=== PATIENT | male | born 1960 | race Caucasian/White ===

== ENCOUNTER → 2024-03-07 12:58 | Outpatient (REF) | payer OTHER, SELFPAY | LOC: RAD 12:58 | PROVIDERS: ATTENDING PHYSICIAN Physician Assistant | DX: R20.2 Paresthesia of skin (principal) | CPT/HCPCS: 72110 ==

== ENCOUNTER 2024-04-14 15:52 | Observation (INO) | payer OTHER, SELFPAY ==
[2024-04-14 10:33] VITALS: BP 133/87
[2024-04-14 11:47] LABS: ALT (SGPT) 19 U/L (0-50); AST (SGOT) 22 U/L (17-59); Albumin 4.6 g/dl (3.5-5.0); Alkaline Phosphatase 75 U/L (38-126); Blood Urea Nitrogen 14 mg/dl (9-20); Calcium 9.6 mg/dl (8.4-10.2); Carbon Dioxide 30 mmol/L (22-30); Chloride 96 mmol/L (98-107); Glucose 74 mg/dl (70-99); Potassium 4.6 mmol/L (3.5-5.1); Sodium 134 mmol/L (135-145); Total Bilirubin 0.5 mg/dl (0.2-1.3); Total Protein 8.1 g/dl (6.3-8.2); eGFR > 60.00
[2024-04-14 11:52] LABS: % Basophils 0.4 % (0-2); % Eosinophils 1.2 % (0-6); % Immature Granulocytes 0.2 % (0-0.5); % Lymphocytes 29.5 % (20.5-51.1); % Monocytes 11.2 % (1.7-9.3); % Neutrophils 57.5 % (42.2-75.2); Absolute Eosinophils 0.1 10^3/uL (0-0.7); Absolute Lymphocytes 1.4 10^3/uL (1.2-3.4); Absolute Monocytes 0.5 10^3/uL (0.1-0.6); Absolute Neutrophils 2.8 10^3/uL (1.4-6.5); Hematocrit 37.6 % (39.0-52.0); Hemoglobin 13.3 g/dL (13.0-18.0); Mean Corp Hgb Conc. 35.4 g/dL (33.0-37.0); Mean Corpuscular Hgb 31.6 pg (27.0-31.0); Mean Corpuscular Volume 89.3 fL (80.0-94.0); Mean Platelet Volume 9.1 fL (7.4-10.4); Nucleated Red Blood Cells % 0 % (-); Platelet Count 232 10^3/uL (130-400); Red Blood Cell Count 4.21 10^6/uL (4.70-6.10); Red Cell Dist. Width 12.9 % (11.5-14.5); White Blood Cell Count 4.8 10^3/uL (4.8-10.8)
[2024-04-14 12:36] LABS: Urine Albumin Negative (Neg - Trace); Urine Bilirubin Negative (Negative); Urine Character Clear (Clear); Urine Color Yellow; Urine Glucose Negative (Negative); Urine Ketone Negative (Negative); Urine Leukocyte Negative (Negative); Urine Nitrite Negative (Negative); Urine Occult Blood Negative (Negative); Urine Urobilinogen Negative (Neg - 1+)
--- NOTE | 2024-04-14 13:12 | ED.GENMED ---
History of Present Illness
General
Chief Complaint: Change in Mental Status
Source: patient
Exam Limitations: none
Time Seen by Provider: 04/14/24 12:07
Nursing documentation reviewed up to this point in time: agreed with
History of Present Illness
History of Present Illness:
63 y/o M with stable bipolar disorder/mental illness on depakote, edentureless, previous alcohol abuse
Here with his roommate who took him and after 2 years of being homeless
She corroborates that the patient has been very psychologically stable on his medications and that he is sober
He is usually a very active person.
Ever since she took a man in the fall she has noticed some bit of a decline in his ability to speak fluently, he takes pauses and has trouble with his words sometimes. He is also since October started having headaches that have been waxing and
waning in intensity but feel like a pressure behind his eyes and his forehead. 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 He has not
had teeth for about 2 years but his speech seems thicker and difficult to understand which is not like him according to even his roommate.
Patient has had some numbness in his body including his hands and feet, lightheadedness and the feeling like he may pass out, urinary frequency where he is urinating every 30 minutes, trouble with his balance. All of the symptoms seem to have been
ongoing for months but over the last couple of weeks have gotten significantly worse so he went and saw his family doctor and they did a very extensive panel of blood apparently and told him that they were presuming that he had Lyme disease
infection although it does not sound like he had a positive Lyme test. He was treated with about 20-maya days of doxycycline before he stopped it on his own. He was supposed to take 28 but he was has feeling like it was upsetting his stomach and he
was not having much improvement of his symptoms in fact he feels like he is worse.
Patient does not usually visit doctors very often, it takes him a lot to get to a doctor. He is very cautious and sensitive to feeling like people will dismiss him because of his previous mental illness and drug abuse.
Past History
Past History
ED Past Medical History: Psychiatric
Social History
Tobacco: Smoker
Alcohol: Former
Drug: None
Personal: Single
Living: with roommate
Employment: Employed
Review of Systems
Review of Systems
Allergies reviewed?: Yes
All Other Systems: Not applicable
Phy Exam
Physical Exam
Physical Exam:
GENERAL: Alert , in no apparent distress
HEAD: NCAT
EYE: pupils equal and reactive, no nystagmus, photophobia
NECK: Supple,full rom, nontender edentulous
ENT: o/p clr, mmm.
CARDIAC: Regular rate and rhythm . no edema
LUNGS: Clear breath sounds bilaterally, no acute respiratory distress, no wheezes/rales/rhonchi
ABDOMEN: Soft, without focal tenderness, no r/g, no cvat
NEUROLOGICAL: Alert and orientedx 4, cn intact, slight left-sided facial droop, the corner of his left mouth does not elevate as normally as the right 5/5 strength in UE/LE, sensation intact, romberg neg, ambulates without assistance, neg pronator
drift
SKIN: Warm and dry, skin intact.
MUSCULOSKELETAL: No edema, well perfused.
PSYCH: Normal and appropriate interaction.
Course
Orders/Labs/Results
Orders:
Orders
04/14/24 11:28
Alcohol Urgent
Complete Blood Count/With Diff Urgent
Comprehensive Metabolic Panel Urgent
04/14/24 12:03
Urinalysis Reflex To Culture Urgent
Date Specimen was Collected: 04/14/24
Time Specimen was Collected: 12:01
04/14/24 12:34
Add On- LAB Urgent
Tests Added?: depakote
CT Head W/o Iv Contrast Urgent
Comment:
Reason For Exam: slurred speech, balance prob, excessive urination
04/14/24 13:04
Depakane Urgent
Comment: DRAWN IN RED TOP
04/14/24 13:11
NEUROLOGY CONSULT Urgent
Consulting Provider: Cole Walker
Was physician already notified: Yes
04/14/24 14:48
Add On- LAB Urgent
Tests Added?: urine drug screen
Ammonia Urgent
Lyme PCR, DNA [S] Urgent
Spinal Fluid Protein Urgent
04/14/24 14:49
CSF Cell Count Urgent
CSF Tube Number: 3
Cryptococcal Antigen, CSF [S] Urgent
Comment: tube #4
Spinal Fluid Glucose Urgent
CSF Tube Number: 2
Gram Stain Urgent
MAX Source: Csf
Specimen Description:
Comment: tube #1
Meningitis Panel, CSF by PCR Urgent
MAX Source: Csf
Specimen Description:
04/14/24 14:53
Add On- LAB Urgent
Tests Added?: alcohol
04/14/24 15:00
Vitamin B12 IN AM
04/14/24 15:13
Add On- LAB Routine
Tests Added?: Valproate level
04/14/24 15:35
Admit/Transfer Patient As Directed
Co-Sign Provider:
Level of Care: Observation services
Assign to:: Telemetry
Physician / Group: Diego Gonsales
Diagnosis: facial weakness/speech change/paresthesia
Reason for Telemetry: Arrhythmia
Date to Stop Telemetry: 04/17/24
Time to Stop Telemetry: 11:00
Reason for Hospitalization: facial weakness/speech change/paresthesia
Expected length of stay greater than two midnights?: Yes
ELOS- Estimated Length of Stay in days: 2
04/14/24 15:39
Code Status As Directed
Resuscitation Status: Full Code
04/15/24 06:00
Vitamin B1, Whole Blood [S] IN AM
04/17/24 11:00
DC Protocol for Telemetry ONCE
Abnormal Lab Results
04/14/24
11:28
RBC 4.21 L 10^6/uL
(4.70-6.10)
Hct 37.6 L %
(39.0-52.0)
MCH 31.6 H pg
(27.0-31.0)
Monocytes % 11.2 H %
(1.7-9.3)
Sodium 134 L mmol/L
(135-145)
Chloride 96 L mmol/L
(98-107)
04/14/24 11:28
04/14/24 11:28
Vital Signs
Initial and Last Documented VS:
Initial Vital Signs
Temp Pulse Resp BP Pulse Ox
97.8 F 86 18 133/87 100
04/14/24 10:33 04/14/24 10:33 04/14/24 10:33 04/14/24 10:33 04/14/24 10:33
Last Documented Vital Signs
Temp Pulse Resp BP Pulse Ox
97.8 F 86 18 133/87 100
04/14/24 10:33 04/14/24 10:33 04/14/24 10:33 04/14/24 10:33 04/14/24 10:33
MDM/Problems Addressed
Differential Diagnosis Includes:
Neuro Lyme, stroke, brain tumor, Depakote toxicity, hydrocephalus
MDM/Problems Addressed:
63-year-old male with a history of bipolar disorder which is very stable
Former alcohol abuse but has been sober for a year
Presents for ongoing months of symptoms that are neurologic with headaches, numbness, gait problems, lightheadedness, word finding and word slurring. This is worsening over the last 3 weeks in particular. He apparently was treated empirically for
Lyme disease but stopped before the 28th day because of not tolerating the medication and not feeling like it was helping. He has not had a neurologic evaluation but is scheduled for an outpatient MRI next week. He was feeling like symptoms are
worsening and he needed to be evaluated. There is nothing particularly today that made him come in because of anything worse.
I do appreciate patient has a paucity of speech, some dysarthria, left facial droop, no trouble with [id number]-hw-[id number], sways with Romberg but not significantly, no sensory deficits or strength deficits
His workup in the emergency department was negative, I was suspicious maybe he would have hydrocephalus but he does not. I obtained a neuro consult.
The patient felt like the neurologist was not taking him seriously. He would prefer to be directly spoken to instead of speaking to his roommate and friend. Patient ultimately does agree to stay for MRI and IR consult for lumbar puncture for CSF
evaluation per neurology recommendation
*Critical Care Note
Total Time (30-74mins, 75-104mins- exclusive of procedures): Not Applicable
ED Attending Note
-
Portions of this chart may have been created with voice recognition software.� Occasional wrong word or��sound alike� substitutions may have occurred due to the inherent limitations of voice recognition software.
Discharge Plan
Departure
Patient Disposition: Admit
Date of Disposition: 04/14/24
Time of Disposition: 14:46
Admit to: Med/Surg
Presentation/result/management discussed w/ accepting MD/DO: Hospitalist
Patient with high blood pressure during this ER visit?: No
Condition: Fair
Covid-19: Not Applicable
Discharge Problem:
Facial droop, Slurred speech
Interventions
Interventions:
*Risk Screen - Suicide Last Done: 04/14/24 10:33
*General Assessment Last Done: 04/14/24 10:33
*Neglect/Abuse Screening Last Done: 04/14/24 10:33
ED- Fall Risk Assessment Last Done: 04/14/24 13:54
*ED COVID-19 Vaccine History Last Done: 04/14/24 10:33
ED- Pulmonary Assessment Last Done: 04/14/24 13:54
ED-Psychological Assessment Last Done: 04/14/24 13:54
ED- Neurological Assessment Last Done: 04/14/24 13:15
ED- Cardiac Assessment Last Done: 04/14/24 13:54
[2024-04-14 13:45] LABS: Depakane 84.3 ug/ml (50.0-120.0)
--- NOTE | 2024-04-14 15:41 | HPS.HSE ---
Family Physician
-
Family Physician: Claudia Berry PA-C
Chief Complaint
-
Facial weakness/speech changes/paresthesia
History of Present Illness
Patient is 63-year-old male with past medical history of bipolar disorder, history of Mckeon's palsy, history of alcohol use, former smoker, history of left hand crush injury, edentulism came to ER for having worsening facial weakness/extremity
numbness and speech changes came to ER for further evaluation. Patient symptoms have been ongoing for few weeks and was seen by PCP and was started on doxycycline course for 28 days for concern of possible Lyme's although serology was negative.
Patient finished antibiotic course and stop further doxycycline as was having some abdominal pain/nausea. Patient have history of left-sided Mckeon's palsy although started having some right-sided sensation change as well. Patient was also having
both hand numbness as well. No reported motor weakness. Patient also having slowness of thought process and word finding difficulty. Patient came to ER for further evaluation.
No associated cardiopulmonary or GI complaints.
Medical History
Past Medical History
Past Medical History: Reports Other
Additional Past Medical History:
history of bipolar disorder, history of Mckeon's palsy, history of alcohol use, former smoker, history of left hand crush injury, edentulism
Past Surgical History: Reports Other
Social History
Tobacco: Former Smoker
Alcohol: Former
Family History
Family History: Not pertinent
Allergies / Home Medications
Allergies reflects when Allergies were last updated in [facility].
Home Medications with original date entered in [facility]
Allergy/Medication List:
Allergies
Allergy/AdvReac Type Severity Reaction Status Date / Time
amoxicillin Allergy Unknown Verified 04/14/24 14:28
bupropion HCl Allergy heart Verified 04/14/24 10:40
[From Wellbutrin] attack,
foamed at
mouth
meperidine Allergy aggressive Verified 04/14/24 10:40
reaction
morphine Allergy Unknown Verified 04/14/24 10:40
Home Medications
Lactobac no.2-Bifidobac no.1-S. thermo 112.5 billion cell capsule (Visbiome) 1 cap PO DAILY 04/14/24
cyanocobalamin (vitamin B-12) 1 tab PO DAILY 04/14/24
divalproex 500 mg tablet,delayed release 1,500 mg PO HS 04/14/24
divalproex 500 mg tablet,delayed release 500 mg PO DAILY 04/14/24
ibuprofen 200 mg tablet (Advil) 200 mg PO DAILYPRN PRN mild pain 04/14/24
quetiapine 200 mg tablet 200 mg PO HS 04/14/24
therapeutic multivitamin 1 tab PO DAILY 04/14/24
vitamin B complex 1 tab PO DAILY 04/14/24
Review of Systems
-
A 12 point ROS was completed and negative except as noted: Yes
Physical Exam
Vital Signs
Vital Signs
Temp Pulse Resp BP Pulse Ox
97.8 F 86 18 133/87 100
04/14/24 10:33 04/14/24 10:33 04/14/24 10:33 04/14/24 10:33 04/14/24 10:33
Physical Exam
General: No Apparent Distress
HEENT: Atraumatic; No Oxygen
Respiratory: Clear
Cardiac: S1/S2 and Regular Rhythm; No Murmur or Rub
GI: Soft, Non Tender, Non Distended and Normal Bowel Sounds; No Organomegaly
Musculoskeletal: No Clubbing, No Cyanosis and No Edema
Skin: No Rash
Neuro: Awake, Alert, Oriented and No Motor Deficits; No No Sensory Deficits
Laboratory Results
-
04/14/24 11:28
04/14/24 11:28
Laboratory Results
Total Bilirubin 0.5 mg/dl (0.2-1.3) 04/14/24 11:28
AST 22 U/L (17-59) 04/14/24 11:28
ALT 19 U/L (0-50) 04/14/24 11:28
Alkaline Phosphatase 75 U/L (38-126) 04/14/24 11:28
Data Reviewed
-
Lab Data: Labs Reviewed by me and Discussed with Family
Impression/Plan
-
1. Paresthesia
Speech changes
-Patient reports right-sided facial paresthesia and bilateral hand and feet numbness/tingling
-No overt motor deficits
-Patient treated empirically for possible Lyme with patient taking 22 days doxycycline.
-MRI brain with and without contrast ordered
-IRAD consulted for lumbar puncture and test ordered
-Check depaokte level
-Check B12/folate level in morning.
-monitor on telemetry
2. h/o Bipolar disorder
-Continue divalproex/Seroquel home dose
history of Mckeon's palsy
history of alcohol use
former smoker
history of left hand crush injury
edentulism
History of head trauma
DVT PPX - scd
Full code
Total time spent : 77 mins
I personally saw and examined the patient.
I have reviewed all diagnostic interpretations and treatment plans as written.
Time includes patient management by me, time spent at the patients bedside, time to review lab and imaging results, discussing patient care, documentation in the medical record, and time spent with the family or caregiver and discussing care plan
with RN/Consultants.
[2024-04-14 15:52] LABS: Alcohol None Detected
[2024-04-14 16:14] VITALS: BP 136/69
[2024-04-14 16:46] LABS: Amphetamines Negative (Negative); Barbiturates Negative (Negative); Benzodiazepines Negative (Negative); Buprenorphine Negative (Negative); Cocaine Negative (Negative); Marijuana Negative (Negative); Methadone Negative (Negative); Methamphetamines Negative (Negative); Opiates Negative (Negative); Phencyclidine Negative (Negative); Tricyclic Antidepressants Positive (Negative)
[2024-04-14 17:00] VITALS: BP 106/66
[2024-04-14 17:23] VITALS: BMI 24.3
[2024-04-14 17:30] LABS: Ammonia < 9 umol/L (9-30)
[2024-04-14 18:40] LABS: Vitamin B12 > 1000 pg/ml (239-931)
[2024-04-14 19:11] LABS: Depakane 84.8 ug/ml (50.0-120.0)
[2024-04-14 19:21] VITALS: BP 122/75
[2024-04-14] MEDS: SEROQUEL 200 MG PO (21:53)
[2024-04-14] MEDS: DEPAKOTE (12 HR RELEASE) 1500 MG PO (21:55)
[2024-04-14] MEDS: MOTRIN 200 MG PO (22:16)
[2024-04-14 23:20] VITALS: BP 112/94
[2024-04-15] VITALS (10 sets, daily range): BP systolic 60–149; BP diastolic 56–83
[2024-04-15 07:36] LABS: Hematocrit 37.4 % (39.0-52.0); Hemoglobin 13.3 g/dL (13.0-18.0); Mean Corp Hgb Conc. 35.6 g/dL (33.0-37.0); Mean Corpuscular Hgb 31.6 pg (27.0-31.0); Mean Corpuscular Volume 88.8 fL (80.0-94.0); Mean Platelet Volume 8.9 fL (7.4-10.4); Platelet Count 199 10^3/uL (130-400); Red Blood Cell Count 4.21 10^6/uL (4.70-6.10); Red Cell Dist. Width 12.5 % (11.5-14.5); White Blood Cell Count 4.3 10^3/uL (4.8-10.8)
[2024-04-15 07:47] LABS: INR 1.12; PT 14.2 Sec (11.4-14.6)
[2024-04-15 08:20] LABS: Blood Urea Nitrogen 15 mg/dl (9-20); Calcium 9.8 mg/dl (8.4-10.2); Carbon Dioxide 28 mmol/L (22-30); Chloride 96 mmol/L (98-107); Estimated Creatinine Clearance 116 ml/min; Glucose 96 mg/dl (70-99); Potassium 4.2 mmol/L (3.5-5.1); Sodium 134 mmol/L (135-145); eGFR > 60.00
[2024-04-15] MEDS: DEPAKOTE (12 HR RELEASE) 500 MG PO (09:05)
[2024-04-15] MEDS: THERAGRAN 1 TABLET PO (09:05)
[2024-04-15] MEDS: B COMPLEX w/VITAMIN C 1 CAPLET PO (09:05)
[2024-04-15] MEDS: VITAMIN B-12 1000 MCG PO (09:06)
[2024-04-15] MEDS: VISBIOME 1 CAP PO (09:08)
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
[2024-04-15 10:32] LABS: Folate 16.9 ng/ml (2.76-20)
[2024-04-15] MEDS: SEROQUEL 50 MG PO (11:09)
--- NOTE | 2024-04-15 12:23 | W.PN.NEURO.1 ---
Addendum entered and electronically signed by Cole Walker MD 04/15/24 19:54:
I have seen and examined the patient. I agree with [employer]ENTATIVE evaluation assessment and plan.
Cole Walker MD
Neurology Attending
Original Note:
Today's Communication / Plan
-
.
Neuro Assessment/Plan
Assessment
This is a 63-year-old male with a PMH of bipolar disorder, L Mckeon's palsy, and alcohol abuse who presented to on 04/14/24 with report of confusion, brain fog, and slurred speech.
-CT head 04/14/24: There are no focal or acute intracranial abnormalities. There is mild diffuse cortical atrophy.
-MRI brain 04/15/24: pending
-Lumbar puncture: pending
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
II. Low concern for structural brain abnormality or infectious process producing symptoms but possible.
III. Bipolar disorder, valproic acid level is normal.
Plan
-MRI brain with renny pending.
-Lumbar puncture to evaluate CSF cell count glucose protein and Lyme's antigen pending.
-Consider routine EEG if workup is unremarkable.
-Thiamine/multivitamin replacement.
-Continue Depakote 500 mg in the morning and 1500 at bedtime
-Consider outpatient neuropsychological testing.
-DVT prophylaxis.
Subjective/Objective
Subjective Data
Date of Service: April 15, 2024
No acute events overnight. Patient reports ongoing brain fog/difficulty getting his words out. He endorses pressure behind bilateral eyes and chronic numbness in his tongue. He denies dizziness, vision changes, swallowing difficulty, nausea,
weakness, chest pain, palpitations, and shortness of breath.
Objective Data
Vital Signs
Temp Pulse Resp BP Pulse Ox
97.8 F 61 18 107/62 97
04/15/24 07:38 04/15/24 07:38 04/15/24 07:38 04/15/24 07:38 04/15/24 09:00
Lab Results
04/15/24 07:24
04/15/24 07:24
PT 14.2 Sec (11.4-14.6) 04/15/24 07:24
INR 1.12 04/15/24 07:24
Sodium 134 mmol/L (135-145) L 04/15/24 07:24
Potassium 4.2 mmol/L (3.5-5.1) 04/15/24 07:24
BUN 15 mg/dl (9-20) 04/15/24 07:24
Glucose 96 mg/dl (70-99) 04/15/24 07:24
Calcium 9.8 mg/dl (8.4-10.2) 04/15/24 07:24
Vitamin B12 Cancelled 04/14/24 15:00
Ur Buprenorphine Negative (Negative) 04/14/24 12:03
Patient Allergies
amoxicillin Allergy (Verified 04/14/24 14:28)
Unknown
bupropion HCl [From Wellbutrin] Allergy (Verified 04/14/24 10:40)
heart attack, foamed at mouth
meperidine Allergy (Verified 04/14/24 10:40)
aggressive reaction
morphine Allergy (Verified 04/14/24 10:40)
Unknown
Review of Systems
-
History Source: Patient
EENT: Negative Blurry Vision, Decreased Vision or Swallowing Difficulty
Respiratory: Negative Cough or Trouble Breathing
Cardiac: Negative Chest Pain or Palpitations
Abdomen/GI: Negative Nausea
Neuro: Headache, Numbness and Speech Problem; Negative Dizzy, Weakness, Ataxia or Tremors
Physical Exam
-
General: No Apparent Distress
Eyes: No Ptosis and PERRLA
HEENT: Normocephalic and Atraumatic
Neck: Full Range of Motion
Respiratory: No Dyspnea
GI: Non-distended
Extremities: No Clubbing, No Cyanosis and No Edema
Extended Neurological Exam
Mood & Affect: Mood Unremarkable and Affect Unremarkable
Attention Span & Concentration: Awake, Alert and Interactive
Memory: Unremarkable (AAOx3) and Able to Recall
Tremor: Hand Tremor Absent and Head Tremor Absent
Involuntary Movement: None
Speech: Quantity Unremarkable, Rate of Production Unremarkable and Dysarthric (mildly slurred speech, adentitious)
Cranial Nerve II: Left Eye: Pupillary Reactivity Unremarkable, Pupillary Size Unremarkable and Visual Watts Intact
Cranial Nerve II: Right Eye: Pupillary Reactivity Unremarkable, Pupillary Size Unremarkable and Visual Watts Intact
Cranial Nerves III, IV, : Extraocular Movement: Extraocular Movement Full in all Directions
Cranial Nerve V: Facial Sensation: Intact to Light Touch
Cranial Nerve VII: Facial Symmetry: Reduced (left facial droop at baseline)
Cranial Nerve VIII: Hearing: Unremarkable Hearing to Normal Conversational Volume
Cranial Nerves IX, X: Palate Movement: Palate Elevation Symmetric
Cranial Nerve XI: Shoulder Shrug: Unremarkable
Cranial Nerve XII: Tongue Protusion: Midline
Muscle Strength, Overall: Full Throughout
Muscle Bulk & Tone: Bulk Unremarkable and Tone Unremarkable
Pronator Drift: No Drift in Upper Extremities and No Drift in Lower Extremities
Deep Tendon Reflexes: Unremarkable Throughout
Cold Sensation: Unremarkable
Vibration Sensation: Unremarkable
Touch Sensation: Unremarkable
Coordination: [id number] Testing Unremarkable
Babinski Sign: Absent Bilaterally
Data Reviewed
-
CT Head: Report Reviewed and Image Reviewed
MRI Head: Pending
Medical Test Reports: Pending (LP)
Labs: Report Reviewed
Lipid Profile: Report Reviewed
HgbA1C: Report Reviewed
Reviewed with: Physician and Patient
Medications
-
Active Medications
Generic Name Dose Route Start Last Admin
Trade Name Freq PRN Reason Stop Dose Admin
Acetaminophen 650 mg 04/14/24 16:45
Acetaminophen 325 Mg Tablet PO 05/12/24 16:44
Q4HPRN PRN
mild pain/WILSON/temp> 100.4F
Bisacodyl 10 mg 04/14/24 16:45
Bisacodyl 10 Mg Rectal Suppository RECTAL 05/12/24 16:44
[id number] PRN
constipation
Cyanocobalamin 1,000 mcg 04/15/24 08:00 04/15/24 09:06
Cyanocobalamin 1,000 Mcg Tablet PO 05/13/24 07:59 1,000 mcg
DAILY J LUIS Administration
Divalproex Sodium 1,500 mg 04/14/24 22:00 04/14/24 21:55
Divalproex 500 Mg Delayed Release (12 Hr) Tablet PO 05/12/24 21:59 1,500 mg
HS J LUIS Administration
Divalproex Sodium 500 mg 04/15/24 08:00 04/15/24 09:05
Divalproex 500 Mg Delayed Release (12 Hr) Tablet PO 05/13/24 07:59 500 mg
DAILY J LUIS Administration
Ibuprofen 200 mg 04/14/24 16:45 04/14/24 22:16
Ibuprofen 200 Mg Tablet PO 05/12/24 16:44 200 mg
DAILYPRN PRN Administration
mild pain
Lactobacillus/Bifidobacterium 1 cap 04/15/24 08:00 04/15/24 09:08
Lactobac/Bifidobac (Visbiome) PO 05/13/24 07:59 1 cap
DAILY J LUIS Administration
Multivitamins Therapeutic 1 tablet 04/15/24 08:00 04/15/24 09:05
Multivitamin Tablet PO 05/13/24 07:59 1 tablet
DAILY J LUIS Administration
Polyethylene Glycol 17 grams 04/14/24 16:45
Polyethylene Glycol Powder 17 Grams Packet PO 05/12/24 16:44
DAILYPRN PRN
constipation
Quetiapine Fumarate 200 mg 04/14/24 22:00 04/14/24 21:53
Quetiapine 100 Mg Tablet PO 05/12/24 21:59 200 mg
HS J LUIS Administration
Senna/Docusate Sodium 1 tablet 04/14/24 16:45
Docusate W/Senna (Michelle-Colace) Tablet PO 05/12/24 16:44
BIDPRN PRN
constipation
Sodium Chloride 0 flush 04/14/24 18:00
Sodium Chloride 0.9% (Flush) Syringe IV 05/12/24 17:59
PER PROTOCOL J LUIS
Thiamine HCl 100 mg 04/15/24 13:00
Thiamine 100 Mg Tablet PO 05/13/24 12:59
DAILY J LUIS
Vitamin B Complex/Vitamin C 1 caplet 04/15/24 08:00 04/15/24 09:05
Vitamin B Complex With Vitamin C Caplet PO 05/13/24 07:59 1 caplet
DAILY J LUIS Administration
Home Medications
�Medication �Instructions �Recorded
Lactobac no.2-Bifidobac no.1-S. 1 cap PO DAILY probiotic 04/14/24
thermo 112.5 billion cell capsule
(Visbiome)
cyanocobalamin (vitamin B-12) 1 tab PO DAILY Supplement 04/14/24
divalproex 500 mg tablet,delayed 1,500 mg PO mental health 04/14/24
release
divalproex 500 mg tablet,delayed 500 mg PO DAILY mental health 04/14/24
release
ibuprofen 200 mg tablet (Advil) 200 mg PO DAILYPRN PRN mild pain 04/14/24
quetiapine 200 mg tablet 200 mg PO HS mental health 04/14/24
therapeutic multivitamin 1 tab PO DAILY Supplement 04/14/24
vitamin B complex 1 tab PO DAILY Supplement 04/14/24
--- NOTE | 2024-04-15 12:58 | PTCARENOTE ---
patient in IR department at present. has baseline left facial droop, some difficulty finding words, mild slurring, reports chronic tongue numbness, feels like 'brain is in a fog and not right', anxiety increased prior to MRI, so one time dose of
Seroquel was administered, after returning from MRI, anxiety appearsed less, vss, will continue to monitor.
--- NOTE | 2024-04-15 12:58 | W.PN.HOSP.TC ---
Today's Communication/Plan
-
await LP result
MRI neg
Assessment / Plan
Assessment / Plan
1. Paresthesia
Speech changes
-Patient reports right-sided facial paresthesia and bilateral hand and feet numbness/tingling
-No overt motor deficits
-Patient treated empirically for possible Lyme with patient taking 22 days doxycycline.
-MRI brain with and without ruled out any abnormalities.
-IRAD consulted for lumbar puncture and waiting for test results.
-Depakote level WNL
-B12/folate wnl.
-monitor on telemetry
2. h/o Bipolar disorder
-Continue divalproex/Seroquel home dose
history of Mckeon's palsy
history of alcohol use
former smoker
history of left hand crush injury
edentulism
History of head trauma
DVT PPX - scd
Full code
Anticipated Discharge: Within 24 hours
Subjective/Interval History
-
Date of Service: April 15, 2024
patient remains anxious to undergo testing
continues to have speech changes
Objective Data
-
Labs:
Laboratory Results
04/15/24
07:24
WBC 4.3 L
Hgb 13.3
Hct 37.4 L
Plt Count 199
PT 14.2
INR 1.12
Sodium 134 L
Potassium 4.2
Chloride 96 L
Carbon Dioxide 28
BUN 15
Creatinine 0.7
Glucose 96
Calcium 9.8
Vital Signs:
Vital Signs
Temp Pulse Resp BP Pulse Ox
99.0 F 60 18 110/67 99
04/15/24 12:51 04/15/24 12:51 04/15/24 12:51 04/15/24 12:51 06/28/24 12:51
I&O
04/14/24 04/15/24 04/16/24
06:59 06:59 06:59
Intake Total 480 / 480
Balance 480 / 480
Review of Systems
-
Respiratory: Reports No Symptoms
Cardiac: Reports No Symptoms
Abdomen/GI: Reports No Symptoms
Physical Exam
-
General: No Apparent Distress and Comfortable
HEENT: Negative Oxygen
Respiratory: Clear to Auscultation
Cardiac: Regular Rhythm and S1/S2; Negative Murmur or Rub
GI: Soft, Nontender and Nondistended
Musculoskeletal: No Edema
Neuro: Awake, Alert, Oriented, No Motor Deficits and Nonfocal/Grossly Intact
Psych: Calm
--- NOTE | 2024-04-15 14:15 | PTCARENOTE ---
patient returned from IR aaox3, reports no pain, lungs clear, no sob, apical heart rate remains bradycardic. lower back band aid c/d/i, vss, will continue to monitor.
[2024-04-15] MEDS: VITAMIN B1 100 MG PO (14:49)
[2024-04-15 14:50] LABS: CSF Clarity Clear; CSF Color Colorless; CSF Tube # 4; White Cell Count/CSF 2 mm^3 (0-5)
[2024-04-15 14:51] LABS: Red Cell Count/CSF 7 mm^3
[2024-04-15 15:49] LABS: Spinal Fluid Glucose 57 mg/dl (40-70); Spinal Fluid Protein 54 mg/dl (12-60)
--- NOTE | 2024-04-15 16:53 | CM ---
Alert awake oriented patient who lives with his SO Radha who lives in a 2 story home with 3 step to enter and bed and bathroom on first floor. He is independent in driving and in all activities of daily living.He was offered VN he declined
need.Observation letter given explained signed on chart.
No VN hx / No SNF history. Hx substance rehab
Pharmacy [facility]
PCP DR Berry
PLAN Home Declined VN
[2024-04-15] MEDS: DEPAKOTE (12 HR RELEASE) 1500 MG PO (21:06)
[2024-04-15] MEDS: SEROQUEL 200 MG PO (21:06)
[2024-04-16 03:00] VITALS: BP 108/70
[2024-04-16 06:59] LABS: Hematocrit 37.2 % (39.0-52.0); Mean Corp Hgb Conc. 34.9 g/dL (33.0-37.0); Mean Corpuscular Hgb 31.3 pg (27.0-31.0); Mean Corpuscular Volume 89.6 fL (80.0-94.0); Mean Platelet Volume 8.9 fL (7.4-10.4); Platelet Count 190 10^3/uL (130-400); Red Blood Cell Count 4.15 10^6/uL (4.70-6.10); Red Cell Dist. Width 12.5 % (11.5-14.5); White Blood Cell Count 5.3 10^3/uL (4.8-10.8)
[2024-04-16 07:00] VITALS: BP 106/72
[2024-04-16 07:22] LABS: Blood Urea Nitrogen 18 mg/dl (9-20); Calcium 9.7 mg/dl (8.4-10.2); Carbon Dioxide 28 mmol/L (22-30); Chloride 96 mmol/L (98-107); Estimated Creatinine Clearance 90 ml/min; Glucose 99 mg/dl (70-99); Potassium 4.4 mmol/L (3.5-5.1); Sodium 134 mmol/L (135-145); eGFR > 60.00
[2024-04-16] MEDS: THERAGRAN 1 TABLET PO (08:52)
[2024-04-16] MEDS: VITAMIN B1 100 MG PO (08:52)
[2024-04-16] MEDS: VISBIOME 1 CAP PO (08:52)
[2024-04-16] MEDS: B COMPLEX w/VITAMIN C 1 CAPLET PO (08:52)
--- NOTE | 2024-04-16 08:55 | W.PN.HOSP.TC ---
Today's Communication/Plan
-
d/c home
Assessment / Plan
Assessment / Plan
1. Paresthesia
Speech changes
-Patient reports right-sided facial paresthesia and bilateral hand and feet numbness/tingling
-No overt motor deficits
-Patient treated empirically for possible Lyme with patient taking 22 days doxycycline.
-MRI brain with and without contrast ruled out any abnormalities.
-IRAD consulted for lumbar puncture normal. wbc 2 TP 54. Meningitis panel negative.
-Depakote level WNL
-B12/folate wnl.
-May have small fiber neuropathy, advised to f/u with [facility] neurology or other neurology of preference for further workup.
2. h/o Bipolar disorder
-Continue divalproex/Seroquel home dose
3. Hyponatremia
-mild, no further workup
history of Mckeon's palsy
history of alcohol use
former smoker
history of left hand crush injury
edentulism
History of head trauma
DVT PPX - scd
Full code
More than 30 minutes spent in discharge including
Final examination of the patient
Summarizing hospital stay
Instructions for continuing care to all relevant caregivers
Preparation of discharge records, prescriptions, and referral forms
Total time spent (in minutes): 38 mins
Anticipated Discharge: Today
Subjective/Interval History
-
Date of Service: April 16, 2024
continues to have some paresthesia in hands/face
no new neurological symptoms
Objective Data
-
Labs:
Laboratory Results
04/16/24
06:41
WBC 5.3
Hgb 13.0
Hct 37.2 L
Plt Count 190
Sodium 134 L
Potassium 4.4
Chloride 96 L
Carbon Dioxide 28
BUN 18
Creatinine 0.9
Glucose 99
Calcium 9.7
Vital Signs:
Vital Signs
Temp Pulse Resp BP Pulse Ox
97.8 F 57 16 106/72 99
04/16/24 07:00 04/16/24 07:00 04/16/24 07:00 04/16/24 07:00 04/16/24 07:00
I&O
04/15/24 04/16/24 04/17/24
06:59 06:59 06:59
Intake Total 480 / 480 1919
Balance 480 / 480 1919
Review of Systems
-
Respiratory: Reports No Symptoms
Cardiac: Reports No Symptoms
Abdomen/GI: Reports No Symptoms
Physical Exam
-
General: No Apparent Distress and Comfortable
HEENT: Negative Oxygen
Respiratory: Clear to Auscultation
Cardiac: Regular Rhythm and S1/S2; Negative Murmur or Rub
GI: Soft, Nontender and Nondistended
Musculoskeletal: No Edema
Neuro: Awake, Alert, Oriented, No Motor Deficits and Nonfocal/Grossly Intact
Psych: Calm
[2024-04-16] MEDS: DEPAKOTE (12 HR RELEASE) 500 MG PO (09:03)
[2024-04-16] MEDS: VITAMIN B-12 1000 MCG PO (09:04)
[2024-04-17 15:36] LABS: C.neoformans Antigen Negative (Negative)
--- NOTE | 2024-04-17 16:42 | W.DCSUMMARY ---
Discharge Summary
Discharge Data
Date of Admission: 04/14/24
Date of Discharge: 04/16/24
-
Pending Results: No
Hospital Course
Discharging Physician : Dr Diego Aguiar
Disposition : Home
Primary care physician : Dr Claudia Berry
Principal Discharge diagnosis :
Facial/extremity paresthesia
Speech changes
Chronic Discharge diagnosis :
History of bipolar disorder
Hyponatremia
History of Mckeon's palsy
History of alcohol use
Former smoker
History of left hand crush injury
Edentulism
History of head trauma
Hospital Course :
Patient is 63-year-old male with mentioned past medical history came to ER for having speech changes, bradyphrenia and right-sided facial and extremity paresthesia. All the symptoms were ongoing for few weeks and initially patient was felt to have
possible Lyme's and was provided 28-day course of doxycycline by primary care physician. Lyme serologies were negative, Patient finished 22-day course without much relief. Patient came to ER for further evaluation and was seen by neurology
services. An MRI brain with and without contrast ruled out any acute abnormalities. Interventional radiology was consulted and patient underwent lumbar puncture and was checked for meningitis panel and was negative. CSF WBC/total protein were
within normal limit and there was no concern of any other infectious source. Depakote level/B12/folate level were checked and within normal limit. At this point patient was clear to be discharged with further follow-up with outpatient neurology.
Patient advised to follow-up with possible [facility] or [place] neurology for further workup of possible small fiber neuropathy.
Important imaging findings :
None
Procedure findings :
None
Discharge Plan
-
Patient Disposition: Home (Routine Discharge)
Discharge Diagnosis/Procedures: Possible small fiber neuropathy vs other
Condition: Fair
Diet: Regular
Activity: As tolerated
Driving Restrictions: As prior to admission
Bathing Restrictions: OK to Shower
Activity Restrictions/Additional Instructions:
Call [facility] Neurology [phone] for follow up for further work up.
Referrals:
Claudia Berry PA-C [Family Provider] - in one week
Prescriptions:
Continued
quetiapine 200 mg Tablet
200 mg PO HS
therapeutic multivitamin Tablet
1 tab PO DAILY
divalproex 500 mg Tablet,Delayed Release (Dr/Ec)
500 mg PO DAILY
divalproex 500 mg Tablet,Delayed Release (Dr/Ec)
1,500 mg PO HS
ibuprofen [Advil] 200 mg Tablet
200 mg PO DAILYPRN PRN (Reason: mild pain)
vitamin B complex Tablet
1 tab PO DAILY
Visbiome 112.5 billion cell Capsule
1 cap PO DAILY
cyanocobalamin (vitamin B-12) tablet
1 tab PO DAILY
Discharge Orders:
Discharge Patient (As Directed); Ordered 04/16/24
Ordered By: Diego Aguiar
Discharge Date and Time
Discharge Date/Time: 04/16/24 10:15
Print Language: ALBANIAN
== END 2024-04-16 10:15 | disposition home or self-care (01) ==
LOC: 3 WEST ACU 15:52
PROVIDERS: Physician Assistant; Radiology Diagnostic Radiology; ADMITTING PHYSICIAN Hospitalist; CONSULT PHYSICIAN Psychiatry & Neurology Neurology; EMERGENCY PHYSICIAN Emergency Medicine; FAMILY PHYSICIAN Physician Assistant
DX: R20.2 Paresthesia of skin (principal); R20.0 Anesthesia of skin; E87.1 Hypo-osmolality and hyponatremia; R41.82 Altered mental status, unspecified; F31.9 Bipolar disorder, unspecified; F10.11 Alcohol abuse, in remission; G51.0 Bell's palsy; R42 Dizziness and giddiness; R35.0 Frequency of micturition; R47.81 Slurred speech; K08.109 Complete loss of teeth, unspecified cause, unspecified class; R51.9 Headache, unspecified; R26.9 Unspecified abnormalities of gait and mobility; R47.1 Dysarthria and anarthria; Z87.891 Personal history of nicotine dependence; Z88.5 Allergy status to narcotic agent; Z88.0 Allergy status to penicillin; Z88.8 Allergy status to other drugs, medicaments and biological substances; Z87.820 Personal history of traumatic brain injury; Z60.2 Problems related to living alone
CPT/HCPCS: 62328; 70450; 70553; 80048; 80053; 80164; 80306; 81003; 82077; 82140; 82607; 82746; 82945; 84157; 84425; 85025; 85027; 85610; 87205; 87327; 87476; 87483; 89051; 99285; 99406; A9575

== ENCOUNTER 2024-05-06 14:40 | Emergency (ER) | payer OTHER, SELFPAY ==
[2024-05-06 14:43] VITALS: BP 148/86
--- NOTE | 2024-05-06 15:39 | ED.GENMED ---
History of Present Illness
General
Chief Complaint: Weakness
Source: patient
Exam Limitations: none
Time Seen by Provider: 05/06/24 15:38
Nursing documentation reviewed up to this point in time: agreed with
History of Present Illness
History of Present Illness:
63-year-old male with history of prior head injury with lightheadedness and dizziness, ADHD, alcohol abuse (has been sober for a year), bipolar presents for 'my varicose veins are more throbby,' this skin (pointing to medial left knee area) was all
bulged out' for past two days but not today, has a sensation 'like a raindrop' off and on right cheek, tingling in both ankles, tingling various areas of face, legs.
Pt lives with a roommate whose mother is a friend and at bedside who states 'he's been fatigued for several months.'
Treated presumptively for Lyme's 2 months ago with Doxycycline by PCP. Had Lyme titer in March 03.
Admitted here 04/14-04/16 for facial and extremity paresthesias, speech changes, had neg MRI, CT, and lumbar puncture (specifically neg for Lyme's or any other infectious process). Depakote, folate and B12 were a WNL. Referred to Neuology which pt
states he has not done.
Sees a therapist at [facility] weekly, last visit 2 days ago.
Sees ST[facility] FE[facility] at [facility] 2 months: they are aware of his symptoms and 2 weeks ago had Seroquel dose decreased from 400 mg daily to 200 mg daily, 100 a.m. and 100 mg p.m.
Past History
Past History
ED Past Medical History: Psychiatric (BiPolarm, ADHD, head injury), Other (Mckeon's Palsy) and Other (paresthesias of face and extremities)
ED Past Surgical History: Orthopedic
Social History
Tobacco: Smoker
Alcohol: Former
Drug: None
Personal: Single
Living: with roommate
Employment: Employed
Review of Systems
Review of Systems
Allergies reviewed?: Yes
All Other Systems: ROS reviewed and negative except as documented in HPI and ROS
Constitutional: Reports fatigue; Denies fever
EENT: Denies sore throat
Respiratory: Denies trouble breathing
Cardiac: Denies chest pain
ABD/GI: Denies abdominal pain, nausea, vomiting, diarrhea, constipated or anorexia
: Reports no symptoms
Musculoskeletal: Denies joint pain, joint swelling, edema, neck pain or back pain
Skin: Reports no symptoms
Neurological: Reports other ('tingling' sensations intermittently face, extremities); Denies headache
Phy Exam
Physical Exam
Physical Exam:
GENERAL: No acute distress. A&Ox3.
CONSTITUTIONAL: Afebrile.
EYES: Clear, conjunctivae normal
ENMT: moist mucus membranes, Pharynx nl
RESPIRATORY: Regular respirations, nonlabored, lungs clear.
CARDIOVASCULAR: Regular rate and rhythm, no murmurs, no rubs.
GI: Soft, nontender, normal BS
MUSCULOSKELETAL: Moves with ease. Well perfused.No edema. Cluster of varicose veins R popliteal area. No significant swelling, no redness or tenderness.
SKIN: Warm, dry, pink
PSYCH: Mildly anxious mood and affect. Well kept, interactive and appropriate
NEUROLOGIC: Awake, alert and oriented. No focal neurological deficit. No tics or spasms noted. Ambulates with steady gait.
Course
Orders/Labs/Results
Orders:
Orders
05/06/24 16:08
Complete Blood Count/With Diff Urgent
Comprehensive Metabolic Panel Urgent
Magnesium Urgent
Abnormal Lab Results
05/06/24
16:08
WBC 4.3 L 10^3/uL
(4.8-10.8)
RBC 4.27 L 10^6/uL
(4.70-6.10)
Hct 37.5 L %
(39.0-52.0)
MCH 31.6 H pg
(27.0-31.0)
Monocytes % 12.5 H %
(1.7-9.3)
Sodium 134 L mmol/L
(135-145)
05/06/24 16:08
05/06/24 16:08
Vital Signs
Initial and Last Documented VS:
Initial Vital Signs
Temp Pulse Resp BP Pulse Ox
98.2 F 95 16 148/86 98
05/06/24 14:43 05/06/24 14:43 05/06/24 14:43 05/06/24 14:43 05/06/24 14:43
Last Documented Vital Signs
Temp Pulse Resp BP Pulse Ox
98.2 F 72 16 133/89 97
05/06/24 14:43 05/06/24 17:39 05/06/24 17:39 05/06/24 17:39 05/06/24 17:39
MDM/Problems Addressed
Differential Diagnosis Includes:
anxiety about health, dehydration, electrolyte imbalance
Reaction to recent change in Psyche medication
MDM/Problems Addressed:
63-year-old male with history of prior head injury with lightheadedness and dizziness, ADHD, alcohol abuse (has been sober for a year), bipolar presents for 'my varicose veins are more throbby,' this skin (pointing to medial left knee area) was all
bulged out' for past two days but not today, has a sensation 'like a raindrop' off and on right cheek, tingling in both ankles, tingling various areas of face, legs.
Pt lives with a roommate whose mother is a friend and at bedside who states 'he's been fatigued for several months.' She is an advocate for the patient.
Sees a therapist at [facility] weekly, last visit 2 days ago.
Sees [facility] at [facility] q 2 months: they are aware of his symptoms and 2 weeks ago had Seroquel dose decreased from 400 mg daily to 200 mg daily, 100 a.m. and 100 mg p.m.
Treated presumptively for Lyme's 2 months ago with Doxycycline by PCP pending titre.
Obtained this result from 03/02 and scanned into this chart: No active Lyme's. 'Total AB positive, IgG positive, IgMBA neg'
Admitted here 04/14-04/16 for facial and extremity paresthesias, speech changes, had neg MRI, CT, and lumbar puncture (specifically neg for Lyme's or any other infectious process). Depakote, folate and B12 were a WNL. Referred to Neuology which pt
states he has not done.
Pt and advocate visitor informed of interpretation of Lyme test, reassured he does not have active Lyme's.
*Critical Care Note
Total Time (30-74mins, 75-104mins- exclusive of procedures): Not Applicable
Patient Management
Social determinants of health affecting care: Strong social support (lives with roommate whose mother helps care for him)
ED Attending Note
-
Portions of this chart may have been created with voice recognition software.� Occasional wrong word or��sound alike� substitutions may have occurred due to the inherent limitations of voice recognition software.
Discharge Plan
Departure
Patient Disposition: Home (Routine Discharge)
Date of Disposition: 05/06/24
Time of Disposition: 17:16
Patient with high blood pressure during this ER visit?: No
Condition: Good
Discharge Problem:
Paresthesias
Instructions: Paresthesia (DC)
Prescriptions:
No Action
quetiapine 200 mg Tablet
200 mg PO HS
therapeutic multivitamin Tablet
1 tab PO DAILY
divalproex 500 mg Tablet,Delayed Release (Dr/Ec)
500 mg PO DAILY
divalproex 500 mg Tablet,Delayed Release (Dr/Ec)
1,500 mg PO HS
ibuprofen [Advil] 200 mg Tablet
200 mg PO DAILYPRN PRN (Reason: mild pain)
vitamin B complex Tablet
1 tab PO DAILY
Visbiome 112.5 billion cell Capsule
1 cap PO DAILY
cyanocobalamin (vitamin B-12) tablet
1 tab PO DAILY
Referrals:
Jacques Callahan MD [Family Provider] -
Carol Boswell, [Active] - Next open appointment
Activity Restrictions/Additional Instructions:
As we discussed, your lab test for Lyme's disease shows that at some time in your past you were exposed but there is no indication of active disease at the time of the test or of current disease at this time
Your blood work today is normal.
Make an appointment with a neurologist for the tingling or 'paresthesias' you are experiencing.
Interventions
Interventions:
*Risk Screen - Suicide Last Done: 05/06/24 16:33
*General Assessment Last Done: 05/06/24 16:33
*Neglect/Abuse Screening Last Done: 05/06/24 16:33
ED- Fall Risk Assessment Last Done: 05/06/24 17:41
*ED COVID-19 Vaccine History Last Done: 05/06/24 16:33
*Nursing Disposition Last Done: 05/06/24 17:41
ED- Cardiac Assessment Last Done: 05/06/24 16:09
ED- Neurological Assessment Last Done: 05/06/24 16:09
ED- Pulmonary Assessment Last Done: 05/06/24 16:09
Discharge Date and Time
Discharge Date/Time: 05/06/24 17:42
Print Language: PERSIAN
[2024-05-06 16:04] VITALS: BP 136/94
[2024-05-06 16:09] VITALS: BP 136/94
[2024-05-06 16:23] LABS: % Basophils 0.5 % (0-2); % Eosinophils 0.9 % (0-6); % Immature Granulocytes 0.2 % (0-0.5); % Monocytes 12.5 % (1.7-9.3); % Neutrophils 46.9 % (42.2-75.2); Absolute Lymphocytes 1.7 10^3/uL (1.2-3.4); Absolute Monocytes 0.5 10^3/uL (0.1-0.6); Hematocrit 37.5 % (39.0-52.0); Hemoglobin 13.5 g/dL (13.0-18.0); Mean Corpuscular Hgb 31.6 pg (27.0-31.0); Mean Corpuscular Volume 87.8 fL (80.0-94.0); Nucleated Red Blood Cells % 0 % (-); Platelet Count 234 10^3/uL (130-400); Red Blood Cell Count 4.27 10^6/uL (4.70-6.10); Red Cell Dist. Width 12.7 % (11.5-14.5); White Blood Cell Count 4.3 10^3/uL (4.8-10.8)
[2024-05-06 16:50] LABS: ALT (SGPT) 16 U/L (0-50); AST (SGOT) 22 U/L (17-59); Albumin 4.5 g/dl (3.5-5.0); Alkaline Phosphatase 82 U/L (38-126); Blood Urea Nitrogen 15 mg/dl (9-20); Calcium 9.8 mg/dl (8.4-10.2); Carbon Dioxide 27 mmol/L (22-30); Chloride 98 mmol/L (98-107); Glucose 79 mg/dl (70-99); Magnesium 2.1 mg/dl (1.6-2.3); Potassium 4.8 mmol/L (3.5-5.1); Sodium 134 mmol/L (135-145); Total Bilirubin 0.3 mg/dl (0.2-1.3); Total Protein 7.6 g/dl (6.3-8.2); eGFR > 60.00
[2024-05-06 17:39] VITALS: BP 133/89
== END 2024-05-06 17:42 | disposition home or self-care (01) ==
LOC: EMR 14:40
PROVIDERS: Registered Nurse; EMERGENCY PHYSICIAN Emergency Medicine; FAMILY PHYSICIAN Family Medicine
DX: R20.2 Paresthesia of skin (principal); F17.200 Nicotine dependence, unspecified, uncomplicated
CPT/HCPCS: 99283; 80053; 83735; 85025

== ENCOUNTER 2024-05-14 11:58 | Emergency (ER) | payer OTHER, SELFPAY ==
[2024-05-14 12:06] VITALS: BP 124/89
[2024-05-14 13:00] LABS: % Basophils 0.3 % (0-2); % Eosinophils 1.4 % (0-6); % Immature Granulocytes 0.3 % (0-0.5); Absolute Eosinophils 0.1 10^3/uL (0-0.7); Absolute Lymphocytes 1.3 10^3/uL (1.2-3.4); Absolute Monocytes 0.4 10^3/uL (0.1-0.6); Absolute Neutrophils 1.8 10^3/uL (1.4-6.5); Hematocrit 36.9 % (39.0-52.0); Hemoglobin 13.7 g/dL (13.0-18.0); Mean Corp Hgb Conc. 37.1 g/dL (33.0-37.0); Mean Corpuscular Hgb 32.1 pg (27.0-31.0); Mean Corpuscular Volume 86.4 fL (80.0-94.0); Mean Platelet Volume 9.1 fL (7.4-10.4); Nucleated Red Blood Cells % 0 % (-); Platelet Count 228 10^3/uL (130-400); Red Blood Cell Count 4.27 10^6/uL (4.70-6.10); Red Cell Dist. Width 12.6 % (11.5-14.5); White Blood Cell Count 3.5 10^3/uL (4.8-10.8)
[2024-05-14 13:14] LABS: ALT (SGPT) 17 U/L (0-50); AST (SGOT) 21 U/L (17-59); Albumin 4.4 g/dl (3.5-5.0); Alkaline Phosphatase 74 U/L (38-126); Blood Urea Nitrogen 17 mg/dl (9-20); Calcium 9.6 mg/dl (8.4-10.2); Carbon Dioxide 25 mmol/L (22-30); Chloride 100 mmol/L (98-107); Glucose 120 mg/dl (70-99); Magnesium 1.9 mg/dl (1.6-2.3); Potassium 4.6 mmol/L (3.5-5.1); Sodium 132 mmol/L (135-145); Total Bilirubin 0.4 mg/dl (0.2-1.3); Total Protein 7.4 g/dl (6.3-8.2); eGFR > 60.00
[2024-05-14 13:22] LABS: NT-proBNP 30.7 pg/ml; Troponin I < 0.012 ng/ml
[2024-05-14 13:42] LABS: TSH 1.56 uIU/ml (0.47-4.68)
--- NOTE | 2024-05-14 13:51 | ED.GENMED ---
History of Present Illness
General
Chief Complaint: Breathing Problem
Time Seen by Provider: 05/14/24 13:41
History of Present Illness
History of Present Illness:
63-year-old male presents the emergency department for evaluation of a myriad of complaints. These issues have been on going for the better part of the past month. He was admitted to this hospital for similar symptoms at the end of March at which
time he underwent a brain MRI as well as a lumbar puncture and both of these were grossly unremarkable. He reports symptoms of intermittent tingling and paresthesia to the upper and lower extremities as well as intermittent lightheadedness. He did
have shortness of breath last night that concerned him. He is scheduled to see his neurologist in 3 days as an outpatient. Denies any fevers or chills. Denies any chest pain or dyspnea at present
Past History
Past History
ED Past Medical History: Psychiatric (BiPolarm, ADHD, head injury), Other (Mckeon's Palsy) and Other (paresthesias of face and extremities)
ED Past Surgical History: Orthopedic
Social History
Tobacco: Smoker
Alcohol: Former
Drug: None
Personal: Single
Living: with roommate
Employment: Employed
Review of Systems
Review of Systems
Allergies reviewed?: Yes
All Other Systems: ROS reviewed and negative except as documented in HPI and ROS
Phy Exam
Physical Exam
Physical Exam:
GEN: Well appearing, NAD, WDWN
HEENT: Oral mucosa moist, no scleral icterus, no nasal congestion
Cardiac: Regular rate and rhythm, no murmurs
Lung: No respiratory distress, no tachypnea
MSK: No gross deformity or injuries
Skin: Good color, no pallor or jaundice, no rashes
Neuro: AO x3; CN II-XII grossly intact, with exception of left facial droop that is reportedly chronic from prior Mckeon's palsy; BUE strength 5/5 in all leigh, sensation intact and symmetric. BLE strength 5/5 in all leigh, sensation intact and
symmetric
Psych: Calm, cooperative
Scores
Heart Failure Risk
Heart Failure Risk Score: Not Applicable
Course
Orders/Labs/Results
Orders:
Orders
05/14/24 12:00
ECG [Electrocardiogram (*1)] Urgent
Reason for Study: Chest Pain
05/14/24 12:01
EKG- Treatment ONCE
05/14/24 12:36
BNP [NT-proBNP] Urgent
Complete Blood Count/With Diff Urgent
Comprehensive Metabolic Panel Urgent
Magnesium Urgent
TSH Urgent
Troponin I Urgent
05/14/24 13:51
CR Chest - 2 Views Urgent
Comment:
Reason For Exam: SOB
Abnormal Lab Results
05/14/24
12:36
WBC 3.5 L 10^3/uL
(4.8-10.8)
RBC 4.27 L 10^6/uL
(4.70-6.10)
Hct 36.9 L %
(39.0-52.0)
MCH 32.1 H pg
(27.0-31.0)
MCHC 37.1 H g/dL
(33.0-37.0)
Monocytes % 11.0 H %
(1.7-9.3)
Sodium 132 L mmol/L
(135-145)
Glucose 120 H mg/dl
(70-99)
05/14/24 12:36
05/14/24 12:36
Vital Signs
Initial and Last Documented VS:
Initial Vital Signs
Temp Pulse Resp BP Pulse Ox
98.1 F 88 16 124/89 98
05/14/24 12:06 05/14/24 12:06 05/14/24 12:06 05/14/24 12:06 05/14/24 12:06
Last Documented Vital Signs
Temp Pulse Resp BP Pulse Ox
98.6 F 88 16 117/89 98
05/14/24 14:21 05/14/24 12:06 05/14/24 12:06 05/14/24 14:19 05/14/24 14:21
MDM/Problems Addressed
MDM/Problems Addressed:
The cause of the patient's symptoms is not clear at this time. His diffuse paresthesias and fatigue have been ongoing for several weeks and he had a previous extensive neurologic workup that was unremarkable he has an upcoming follow-up with
neurology. This week and I recommended he keep this appointment. I see no evidence for acute coronary syndrome or acute neurologic emergency
Comment
Comment:
EKG independently interpreted by me shows normal sinus rhythm at a rate of [address] changes concerning for ischemia
*Critical Care Note
Total Time (30-74mins, 75-104mins- exclusive of procedures): Not Applicable
ED Attending Note
-
Portions of this chart may have been created with voice recognition software.� Occasional wrong word or��sound alike� substitutions may have occurred due to the inherent limitations of voice recognition software.
Discharge Plan
Departure
Patient Disposition: Home (Routine Discharge)
Date of Disposition: 05/14/24
Time of Disposition: 14:30
Patient with high blood pressure during this ER visit?: No
Discharge Problem:
Paresthesia
Instructions: Paresthesia (DC)
Prescriptions:
No Action
quetiapine 200 mg Tablet
200 mg PO HS
therapeutic multivitamin Tablet
1 tab PO DAILY
divalproex 500 mg Tablet,Delayed Release (Dr/Ec)
500 mg PO DAILY
divalproex 500 mg Tablet,Delayed Release (Dr/Ec)
1,500 mg PO HS
ibuprofen [Advil] 200 mg Tablet
200 mg PO DAILYPRN PRN (Reason: mild pain)
vitamin B complex Tablet
1 tab PO DAILY
Visbiome 112.5 billion cell Capsule
1 cap PO DAILY
cyanocobalamin (vitamin B-12) tablet
1 tab PO DAILY
Referrals:
Wilson Treviño MD [Family Provider] -
Activity Restrictions/Additional Instructions:
The cause of your symptoms is not clear at this time however does not appear to be anything emergent. Please continue with plan to follow-up with neurology next week
Interventions
Interventions:
*Risk Screen - Suicide Last Done: 05/14/24 14:22
*General Assessment Last Done: 05/14/24 14:22
*Neglect/Abuse Screening Last Done: 05/14/24 14:22
ED- Fall Risk Assessment Last Done: 05/14/24 14:36
*ED COVID-19 Vaccine History Last Done: 05/14/24 14:22
*Nursing Disposition Last Done: 05/14/24 14:36
ED- Cardiac Assessment Last Done: 05/14/24 14:22
ED- Pulmonary Assessment Last Done: 05/14/24 14:22
Discharge Date and Time
Discharge Date/Time: 05/14/24 14:37
Print Language: BENGALI
[2024-05-14 14:19] VITALS: BP 117/89
[2024-05-14 14:20] VITALS: BMI 25.6
== END 2024-05-14 14:37 | disposition home or self-care (01) ==
LOC: EMR 11:58
PROVIDERS: Emergency Medicine; EMERGENCY PHYSICIAN Emergency Medicine; FAMILY PHYSICIAN Family Medicine
DX: R20.2 Paresthesia of skin (principal); R42 Dizziness and giddiness; R20.0 Anesthesia of skin; R06.02 Shortness of breath; R53.83 Other fatigue; F90.9 Attention-deficit hyperactivity disorder, unspecified type; G51.0 Bell's palsy; F17.200 Nicotine dependence, unspecified, uncomplicated; Z88.1 Allergy status to other antibiotic agents; Z88.5 Allergy status to narcotic agent; Z88.8 Allergy status to other drugs, medicaments and biological substances
CPT/HCPCS: 99283; 71046; 80053; 83735; 83880; 84443; 84484; 85025; 93005

== ENCOUNTER 2024-06-08 12:54 | Emergency (ER) | payer OTHER, SELFPAY ==
[2024-06-08 12:58] VITALS: BP 157/90
[2024-06-08 13:29] LABS: % Basophils 0.5 % (0-2); % Eosinophils 1.8 % (0-6); % Immature Granulocytes 0.3 % (0-0.5); % Lymphocytes 38.9 % (20.5-51.1); % Monocytes 13.5 % (1.7-9.3); Absolute Eosinophils 0.1 10^3/uL (0-0.7); Absolute Lymphocytes 1.5 10^3/uL (1.2-3.4); Absolute Monocytes 0.5 10^3/uL (0.1-0.6); Absolute Neutrophils 1.7 10^3/uL (1.4-6.5); Hematocrit 38.6 % (39.0-52.0); Hemoglobin 14.1 g/dL (13.0-18.0); Mean Corp Hgb Conc. 36.5 g/dL (33.0-37.0); Mean Corpuscular Hgb 31.8 pg (27.0-31.0); Mean Corpuscular Volume 87.1 fL (80.0-94.0); Mean Platelet Volume 8.9 fL (7.4-10.4); Nucleated Red Blood Cells % 0 % (-); Platelet Count 247 10^3/uL (130-400); Red Blood Cell Count 4.43 10^6/uL (4.70-6.10); Red Cell Dist. Width 12.2 % (11.5-14.5); White Blood Cell Count 3.9 10^3/uL (4.8-10.8)
[2024-06-08 13:48] LABS: ALT (SGPT) 22 U/L (0-50); AST (SGOT) 27 U/L (17-59); Albumin 4.8 g/dl (3.5-5.0); Alkaline Phosphatase 76 U/L (38-126); Blood Urea Nitrogen 14 mg/dl (9-20); Calcium 10.2 mg/dl (8.4-10.2); Carbon Dioxide 30 mmol/L (22-30); Chloride 98 mmol/L (98-107); Glucose 107 mg/dl (70-99); Potassium 4.7 mmol/L (3.5-5.1); Sodium 133 mmol/L (135-145); Total Bilirubin 0.4 mg/dl (0.2-1.3); Total Protein 7.9 g/dl (6.3-8.2); eGFR > 60.00
--- NOTE | 2024-06-08 14:53 | ED.GENMED ---
History of Present Illness
<Jazlyn Valladares DO - Last Filed: 06/08/24 14:53>
General
Chief Complaint: Numbness
Time Seen by Provider: 06/08/24 15:10
<Nathaniel Lozano PA-C - Last Filed: 06/08/24 17:57>
General
Source: patient
Exam Limitations: none
History of Present Illness
History of Present Illness:
63-year-old male here with ongoing paresthesias. He was admitted in March for this had an MRI lumbar puncture both of which were negative. He notes increased neck pain. He has seen neurology in the interim who ordered a CT of the cervical spine
secondary to neck pain. He is having trouble getting this done. He notes the pain is on bilateral aspects of his neck that radiates to both shoulders. The pain is not pleuritic. He notes ongoing [id number] 1 of which are not new. He has
had his Depakote level checked. He denies a fever. He had Lyme disease last year. No new complaints otherwise.
Past History
<DO Benita Sanchez Last Filed: 06/08/24 14:53>
Past History
ED Past Medical History: Psychiatric (BiPolarm, ADHD, head injury), Other (Mckeon's Palsy) and Other (paresthesias of face and extremities)
ED Past Surgical History: Orthopedic
Social History
Tobacco: Smoker
Alcohol: Former
Drug: None
Personal: Single
Living: with roommate
Employment: Employed
Phy Exam
<Nathaniel Lozano PA-C - Last Filed: 06/08/24 17:57>
Physical Exam
Physical Exam:
General: Well-appearing male no acute respiratory distress
HEENT: Normocephalic atraumatic
Heart: Regular rate and rhythm no murmurs
Lungs: Clear no wheeze
Neurologic exam: Alert and oriented. Conversing appropriately. Good muscle tone. No drift. Bilateral patellar reflexes are 2+.
Skin is warm no rash
Vascular: 2+ dorsalis pedis pulse bilateral feet
Course
<Jazlyn Valladares, DO - Last Filed: 06/08/24 14:53>
Orders/Labs/Results
Orders:
Orders
06/08/24 13:13
CMP [Comprehensive Metabolic Panel] Urgent
Complete Blood Count/With Diff Urgent
06/08/24 15:28
CT Cervical Spine W/o Iv Contr Urgent
Comment:
Reason For Exam: neck pain
06/08/24 17:45
Ketorolac [Toradol] 30 mg IM NOW STA
Abnormal Lab Results
06/08/24
13:13
WBC 3.9 L 10^3/uL
(4.8-10.8)
RBC 4.43 L 10^6/uL
(4.70-6.10)
Hct 38.6 L %
(39.0-52.0)
MCH 31.8 H pg
(27.0-31.0)
Monocytes % 13.5 H %
(1.7-9.3)
Sodium 133 L mmol/L
(135-145)
Glucose 107 H mg/dl
(70-99)
06/08/24 13:13
06/08/24 13:13
Vital Signs
Initial and Last Documented VS:
Initial Vital Signs
Temp Pulse Resp BP Pulse Ox
98.9 F 78 20 157/90 98
06/08/24 12:58 06/08/24 12:58 06/08/24 12:58 06/08/24 12:58 06/08/24 12:58
Last Documented Vital Signs
Temp Pulse Resp BP Pulse Ox
98.9 F 76 14 133/89 99
06/08/24 12:58 06/08/24 15:13 06/08/24 15:13 06/08/24 15:13 06/08/24 15:13
<Nathaniel Lozano PA-C - Last Filed: 06/08/24 17:57>
Orders/Labs/Results
Orders:
Orders
06/08/24 13:13
CMP [Comprehensive Metabolic Panel] Urgent
Complete Blood Count/With Diff Urgent
06/08/24 15:28
CT Cervical Spine W/o Iv Contr Urgent
Comment:
Reason For Exam: neck pain
06/08/24 17:45
Ketorolac [Toradol] 30 mg IM NOW STA
Abnormal Lab Results
06/08/24
13:13
WBC 3.9 L 10^3/uL
(4.8-10.8)
RBC 4.43 L 10^6/uL
(4.70-6.10)
Hct 38.6 L %
(39.0-52.0)
MCH 31.8 H pg
(27.0-31.0)
Monocytes % 13.5 H %
(1.7-9.3)
Sodium 133 L mmol/L
(135-145)
Glucose 107 H mg/dl
(70-99)
06/08/24 13:13
06/08/24 13:13
Vital Signs
Initial and Last Documented VS:
Initial Vital Signs
Temp Pulse Resp BP Pulse Ox
98.9 F 78 20 157/90 98
06/08/24 12:58 06/08/24 12:58 06/08/24 12:58 06/08/24 12:58 06/08/24 12:58
Last Documented Vital Signs
Temp Pulse Resp BP Pulse Ox
98.9 F 76 14 133/89 99
06/08/24 12:58 06/08/24 15:13 06/08/24 15:13 06/08/24 15:13 06/08/24 15:13
<Nathaniel Lozano PA-C - Last Filed: 06/08/24 17:57>
MDM/Problems Addressed
Differential Diagnosis Includes:
Paresthesias and neck pain. Consider neuropathy. Recent MRI of his brain and lumbar puncture were negative. He does note increasing neck pain. A CT scan of his neck without IV contrast was ordered as an outpatient but was not able to be done.
This will be ordered today. Basic labs were reviewed today and are negative.
<Nathaniel Lozano PA-C - Last Filed: 06/08/24 17:57>
*Critical Care Note
Total Time (30-74mins, 75-104mins- exclusive of procedures): Not Applicable
<Nathaniel Lozano PA-C - Last Filed: 06/08/24 17:57>
Update Note
Update Note:
CT of cervical spine demonstrates disc bulging at C5-C6 causing moderate bilateral foraminal stenosis. This would correlate with the area of the patient's discomfort. Patient was given Toradol IM and will be prescribed prednisone take at home. He
is stable for discharge with follow-up
ED Attending Note
<Jazlyn Valladares DO - Last Filed: 06/08/24 14:53>
-
Portions of this chart may have been created with voice recognition software.� Occasional wrong word or��sound alike� substitutions may have occurred due to the inherent limitations of voice recognition software.
Discharge Plan
Departure
Patient Disposition: Home (Routine Discharge)
Date of Disposition: 06/08/24
Time of Disposition: 17:55
Patient with high blood pressure during this ER visit?: No
Discharge Problem:
Cervical radiculopathy
Instructions: Radiculopathy (DC)
Prescriptions:
New
prednisone 10 mg Tablet
See Rx Instructions .ROUTE .COMPLEX Qty: 30 0RF
Rx Instructions:
Take By Mouth:
40 mg daily x3 days, 30 mg daily x3 days,
20 mg daily x3 days, 10 mg daily x3 days.
No Action
quetiapine 200 mg Tablet
200 mg PO HS
therapeutic multivitamin Tablet
1 tab PO DAILY
divalproex 500 mg Tablet,Delayed Release (Dr/Ec)
500 mg PO DAILY
divalproex 500 mg Tablet,Delayed Release (Dr/Ec)
1,500 mg PO HS
ibuprofen [Advil] 200 mg Tablet
200 mg PO DAILYPRN PRN (Reason: mild pain)
vitamin B complex Tablet
1 tab PO DAILY
Visbiome 112.5 billion cell Capsule
1 cap PO DAILY
cyanocobalamin (vitamin B-12) tablet
1 tab PO DAILY
Referrals:
Claudia Berry PA-C [Family Provider] -
Activity Restrictions/Additional Instructions:
Take prednisone as directed. Please continue to follow-up with neurology. Return if worse otherwise
Interventions
Interventions:
*Risk Screen - Suicide Last Done: 06/08/24 17:14
*General Assessment Last Done: 06/08/24 17:14
*Neglect/Abuse Screening Last Done: 06/08/24 17:14
*ED COVID-19 Vaccine History Last Done: 06/08/24 17:14
ED- Neurological Assessment Last Done: 06/08/24 17:14
Discharge Date and Time
Print Language: GREENLAND[place]
[2024-06-08 15:13] VITALS: BP 133/89
[2024-06-08] MEDS: TORADOL 30 MG IM (18:04)
[2024-06-08 18:06] VITALS: BP 142/78
== END 2024-06-08 18:09 | disposition home or self-care (01) ==
LOC: EMR 12:54
PROVIDERS: EMERGENCY PHYSICIAN Student in an Organized Health Care Education/Training Program; FAMILY PHYSICIAN Physician Assistant
DX: M50.122 Cervical disc disorder at C5-C6 level with radiculopathy (principal); M47.22 Other spondylosis with radiculopathy, cervical region; M25.511 Pain in right shoulder; M25.512 Pain in left shoulder; R20.2 Paresthesia of skin; F90.9 Attention-deficit hyperactivity disorder, unspecified type; Z88.1 Allergy status to other antibiotic agents; Z88.5 Allergy status to narcotic agent; Z88.8 Allergy status to other drugs, medicaments and biological substances
CPT/HCPCS: 99284; 96372; 72125; 80053; 85025

== ENCOUNTER 2024-06-14 17:31 | Emergency (ER) | payer OTHER, SELFPAY ==
[2024-06-14 17:39] VITALS: BP 167/92
[2024-06-14 19:57] VITALS: BP 135/95
--- NOTE | 2024-06-14 21:46 | ED.GENMED ---
History of Present Illness
General
Chief Complaint: Musculo-Skeletal Complaint
Source: patient and other (friend)
Exam Limitations: none
Time Seen by Provider: 06/14/24 21:30
Nursing documentation reviewed up to this point in time: agreed with
History of Present Illness
History of Present Illness:
Patient is a 63-year-old male with past medical history of bipolar disorder, previous head injury, Mckeon's palsy presents to the ER for evaluation. Patient has had chronic neck pain and has had ongoing paresthesias to arms and legs bilaterally. He
has been seen here for this several times in the past. He was seen by his family doctor for this as well as neurology . Neurology had ordered a CAT scan but patient came here June 08 and had the CAT scan done CAT scan showed disc bulging at
C5-C6 causing moderate bilateral foraminal stenosis. Patient was giving steroids and was given a shot of Toradol. He continues to take prednisone but continues to have some neck pain. The paresthesia in his arms or legs are not new. This has
been chronic for months. He denies any weakness to his arms or legs. He is here because of discomfort and feels that his neck is sore. He had an appoint with his family doctor adonay to further evaluate this but canceled and came here.
Past History
Past History
ED Past Medical History: Psychiatric (BiPolarm, ADHD, head injury), Other (Mckeon's Palsy) and Other (paresthesias of face and extremities)
ED Past Surgical History: Orthopedic
Social History
Tobacco: Smoker
Alcohol: Former
Drug: None
Personal: Single
Living: with roommate
Employment: Employed
Review of Systems
Review of Systems
Allergies reviewed?: Yes
All Other Systems: ROS reviewed and negative except as documented in HPI and ROS
Constitutional: Reports no symptoms; Denies fever, fatigue or chills
Musculoskeletal: Reports neck pain; Denies back pain
Skin: Reports no symptoms
Neurological: Reports other (Chronic numbness tingling to b/l arms/legs )
Phy Exam
General Physical Exam
General Presentation: no apparent distress
General age: appears stated age
General Skin: warm and dry
General Habitus: normal
General Mental: alert
General Hydration: appears well hydrated
Eye Exam
Eye Exam: PERRL and EOMI
Eye Exam General: PERRL: bilateral and EOM intact: bilateral
Pupil Exam: Bilateral: round and reactive
Neurological Exam
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
[place] Coma Scale
Eye Opening: Spontaneous
Verbal Response: Oriented
Motor Response: Obeys Commands
GCS Total Score: 15
Musculoskeletal Exam
Musculoskeletal Exam: other (Patient with tenderness throughout the upper trapezius paracervical muscles full range of motion to all extremities upper and lower)
Skin Exam
Skin Exam: normal color and warm/dry
Psychiatric Exam
Psychiatric Exam: normal mood/affect
Course
Orders/Labs/Results
Orders:
Orders
06/14/24 21:50
Lidocaine [Lidocaine 4% Patch] 1 patch TOPICAL NOW STA
Apply Lidocaine patch(s) to:: neck
diazePAM [Valium Injection] 5 mg IM NOW STA
Vital Signs
Initial and Last Documented VS:
Initial Vital Signs
Temp Pulse Resp BP Pulse Ox
98.1 F 78 20 167/92 97
06/14/24 17:39 06/14/24 17:39 06/14/24 17:39 06/14/24 17:39 06/14/24 17:39
Last Documented Vital Signs
Temp Pulse Resp BP Pulse Ox
98.1 F 70 16 135/95 98
06/14/24 17:39 06/14/24 19:57 06/14/24 19:57 06/14/24 19:57 06/14/24 19:57
MDM/Problems Addressed
MDM/Problems Addressed:
Patient patient with chronic paresthesias in upper/lower extremities this is not new. Patient recently had a CAT scan done of his neck which did show of C5-C6 disc this CAT scan was done June 08. He is taking prednisone however continues to
complain of soreness to the neck. On exam he has tenderness to upper trapezius and bilateral cervical muscles. Will give 1 dose of IM Valium to get patient relief here along with lidocaine patch however because he is on other medications will DC
with Tylenol have patient continue prednisone however I will give referral to ortho/spine .
2300: Patient feeling much better feels well after go home will send a prescription for lidocaine patch to pharmacy. Patient was given information for Ortho and spine.
Chronic conditions affecting care:
bipolar
*Pulse Oximetry
Patient hypoxic: no
*Critical Care Note
Total Time (30-74mins, 75-104mins- exclusive of procedures): Not Applicable
Data Reviewed
Review of Other/Old Records Reveals: Other (Previous ED visits)
ED Attending Note
-
Portions of this chart may have been created with voice recognition software.� Occasional wrong word or��sound alike� substitutions may have occurred due to the inherent limitations of voice recognition software.
Discharge Plan
Departure
Patient Disposition: Home (Routine Discharge)
Date of Disposition: 06/14/24
Time of Disposition: 23:03
Patient with high blood pressure during this ER visit?: Yes
Condition: Fair
Covid-19: Not Applicable
Discharge Problem:
Neck pain
Instructions: Neck Pain ED
Prescriptions:
New
lidocaine 5 % adhesive patch,medicated
1 patch topical DAILY Qty: 15 0RF
Rx Instructions:
remove after 12 hrs
No Action
quetiapine 200 mg Tablet
200 mg PO HS
therapeutic multivitamin Tablet
1 tab PO DAILY
divalproex 500 mg Tablet,Delayed Release (Dr/Ec)
500 mg PO DAILY
divalproex 500 mg Tablet,Delayed Release (Dr/Ec)
1,500 mg PO HS
ibuprofen [Advil] 200 mg Tablet
200 mg PO DAILYPRN PRN (Reason: mild pain)
vitamin B complex Tablet
1 tab PO DAILY
Visbiome 112.5 billion cell Capsule
1 cap PO DAILY
cyanocobalamin (vitamin B-12) tablet
1 tab PO DAILY
prednisone 10 mg Tablet
See Rx Instructions .ROUTE .COMPLEX Qty: 30 0RF
Rx Instructions:
Take By Mouth:
40 mg daily x3 days, 30 mg daily x3 days,
20 mg daily x3 days, 10 mg daily x3 days.
Referrals:
Epifanio Gregory MD [Active] -
Claudia Berry PA-C [Family Provider] -
Jesse Willoughby MD [Active] -
Activity Restrictions/Additional Instructions:
As discussed initial prednisone. You may take Tylenol as needed. A prescription for lidocaine patch was sent to your pharmacy use as directed. Follow-up with either orthopedics or insurance follow up specialist as discussed. Return if any worsening of signs.
Interventions
Interventions:
*Risk Screen - Suicide Last Done: 06/14/24 19:57
*General Assessment Last Done: 06/14/24 19:57
*Neglect/Abuse Screening Last Done: 06/14/24 19:57
ED- Fall Risk Assessment Last Done: 06/14/24 19:57
*ED COVID-19 Vaccine History Last Done: 06/14/24 19:57
ED-Musculoskeletal Assessment Last Done: 06/14/24 19:57
Discharge Date and Time
Print Language: [place]
[2024-06-14] MEDS: LIDOCAINE 4% PATCH 1 PATCH TOPICAL (22:05)
[2024-06-14] MEDS: VALIUM INJECTION 5 MG IM (22:07)
[2024-06-14 23:15] VITALS: BP 114/77
== END 2024-06-14 23:15 | disposition home or self-care (01) ==
LOC: EMR 17:31
PROVIDERS: EMERGENCY PHYSICIAN Emergency Medicine; FAMILY PHYSICIAN Physician Assistant
DX: M54.2 Cervicalgia (principal); F31.9 Bipolar disorder, unspecified; F90.9 Attention-deficit hyperactivity disorder, unspecified type; F17.200 Nicotine dependence, unspecified, uncomplicated
CPT/HCPCS: 99282; 96372